=== PATIENT | female | born 1985 | race Asian ===

== ENCOUNTER 2016-07-02 20:51 | Emergency (ER) | payer OTHER, MEDICAID ==
[2016-07-02] MEDS ORDERED: PNV11TAB PO (20:58)
[2016-07-02] MEDS ORDERED: ASPI81TA42 PO (20:58)
[2016-07-02] MEDS ORDERED: GLYB2.5 PO (20:58)
== END 2016-07-03 04:42 | disposition home or self-care (01) ==
LOC: EMS 20:53
DX: O62.4 Hypertonic, incoordinate, and prolonged uterine contractions (principal); Z53.21 Procedure and treatment not carried out due to patient leaving prior to being seen by health care provider

== ENCOUNTER 2016-07-02 21:10 | Observation (INO) | payer OTHER, MEDICAID ==
[~2016-07-02] VITALS: Ht 165.1 cm; Wt 101.6 kg
[~2016-07-02 21:10] MED LIST: ASPI81TA42 PO; GLYB2.5 PO; PNV11TAB PO
[2016-07-02 21:53] VITALS: BP 118/59
[2016-07-02 22:46] LABS: GLUCOSE,POINT OF CARE 74 MG/DL (70-110)
[2016-07-02] MEDS ORDERED: CefTRIAXone SODIUM 1 GM/VIAL IM ONE (22:55)
[2016-07-02] MEDS ORDERED: LIDOCAINE HCL/PF 1% 2 ML VIAL IM ONE (23:00)
== END 2016-07-02 23:55 | disposition home or self-care (01) ==
LOC: 4S 21:10
PROVIDERS: ADMIT Obstetrics & Gynecology Gynecology; ATTEND Obstetrics & Gynecology Gynecology
DX: O26.892 Other specified pregnancy related conditions, second trimester (principal); R30.9 Painful micturition, unspecified; O24.419 Gestational diabetes mellitus in pregnancy, unspecified control; Z3A.21 21 weeks gestation of pregnancy
CPT/HCPCS: 59025; 82962; 96372; G0378; J0696; J3490

== ENCOUNTER 2018-09-05 20:58 | Emergency (ER) | payer MEDICAID, OTHER ==
[~2018-09-05] VITALS: Ht 165.1 cm; Wt 100.5 kg
[~2018-09-05 20:58] MED LIST changes: +ASPI81TA40 PO; -ASPI81TA42 PO
[2018-09-05] MEDS ORDERED: LISI-660 PO (21:05)
[2018-09-05] MEDS ORDERED: METF-960 PO (21:05)
[2018-09-05] MEDS ORDERED: EMPA10TA PO (21:05)
[2018-09-05 22:15] LABS: APPEARANCE,URINE CLOUDY (CLEAR); GLUCOSE, URINE (UA) 100 mg/dL (NEGATIVE); KETONES,URINE >=80 mg/dL (NEGATIVE); LEUKOCYTE ESTERASE ,URINE MODERATE (NEGATIVE); NITRATE,URINE NEGATIVE (NEGATIVE); OCCULT BLOOD,URINE SMALL (NEGATIVE); PH,URINE 5.5 (5.0-8.0); PROTEIN,URINE SEE CONFIRM (NEGATIVE)
[2018-09-05] MEDS ORDERED: KETOROLAC TROMETHAMINE 30 MG/ML VIAL IVP ONE (22:15)
[2018-09-05 22:16] LABS: BILIRUBIN,URINE PRELIM. POSITIVE (NEGATIVE)
[2018-09-05 22:16] LABS: BASOPHILS % (AUTO) 0.6 % (0.0-2.0); EOSINOPHILS % (AUTO) 0.5 % (1.0-6.0); HEMATOCRIT 40.9 % (36-46); HEMOGLOBIN 13.6 g/dL (12.0-16.0); LYMPHOCYTES # (AUTO) 2.6 K/uL (1.0-4.8); MEAN CORPUSCULAR HEMOGLOBIN 28.9 pg (26.0-34.0); MEAN CORPUSCULAR HGB CONC 33.2 G/dL (31.0-37.0); MEAN CORPUSCULAR VOLUME 87 fL (80-100); MONOCYTES # (AUTO) 0.4 K/uL (0.1-1.0); MONOCYTES % (AUTO) 4.6 % (2.0-9.0); NEUTROPHILS # (AUTO) 6.1 K/uL (1.8-7.7); NEUTROPHILS % (AUTO) 66.3 % (40.0-70.0); PLATELET COUNT (AUTO) 370 K/uL (150-450); RED BLOOD CELL COUNT(AUTO) 4.69 MIL/uL (4.00-5.20); RED CELL DISTRIBUTION WIDTH 13.6 % (11.5-14.5)
[2018-09-05 22:21] LABS: SULFOSALICYLIC ACID,URINE 3+ (Negative); WBC,URINE 26-50 /HPF (0-5)
[2018-09-05 22:22] LABS: BACTERIA,URINE Few /HPF (None Seen); MUCUS,URINE Moderate LPF (None Seen); SQUAMOUS EPITHELIAL CELL,UR Moderate /LPF (None Seen)
[2018-09-05 22:23] LABS: ANION GAP 8 mmol/L (8-16); CALCIUM, TOTAL 8.8 mg/dL (8.8-10.5); CARBON DIOXIDE 26 mmol/L (22-29); CHLORIDE 101 mmol/L (98-107); CREATININE 0.85 mg/dL (0.60-1.30); GLOMERULAR FILTR. RATE CALC > 60 mL/min (>60); GLUCOSE,RANDOM 187 mg/dL (70-110); POTASSIUM 3.1 mmol/L (3.5-5.1); SODIUM SERUM 135 mmol/L (136-145); UREA NITROGEN, BLOOD 7 mg/dL (7-18)
[2018-09-05 22:29] LABS: ALANINE AMINOTRANSFERASE 19 U/L (12-78); ALKALINE PHOSPHATASE 29 U/L (46-116); ASPARTATE AMINOTRANSFERASE 13 U/L (15-37); BILIRUBIN,TOTAL 0.4 mg/dL (0.1-1.0); TOTAL PROTEIN, SERUM 7.5 g/dL (6.4-8.2)
[2018-09-06] MEDS ORDERED: POTASSIUM CHLORIDE 20 MEQ ER TABLET PO ONE (00:15)
[2018-09-06] MEDS ORDERED: CEPHALEXIN MONOHYDRATE 500 MG CAPSULE PO ONE (00:15)
[2018-09-06 00:35] VITALS: BP 131/72
== END 2018-09-06 00:45 | disposition home or self-care (01) ==
LOC: EMS 20:58
DX: M94.0 Chondrocostal junction syndrome [Tietze] (principal); N39.0 Urinary tract infection, site not specified; I10 Essential (primary) hypertension; E11.9 Type 2 diabetes mellitus without complications; Z79.84 Long term (current) use of oral hypoglycemic drugs; Z79.899 Other long term (current) drug therapy
CPT/HCPCS: 36415; 71045; 80053; 81001; 81025; 82962; 84484; 85025; 87086; 93005; 96374; 99284; J1885

== ENCOUNTER 2022-09-17 20:50 | Emergency (ER) | payer OTHER ==
[~2022-09-17] VITALS: Ht 170.2 cm; Wt 95.5 kg
[~2022-09-17 20:50] MED LIST changes: -ASPI81TA40 PO; +EMPA10TA3 PO; -GLYB2.5 PO; +LISI-892 PO; +METF-1211 PO; -PNV11TAB PO
[2022-09-17 21:16] LABS: GLUCOMETER DEV NAME(LOC) ERT.5; GLUCOSE,POINT OF CARE 236 MG/DL (70-110)
[2022-09-17] MEDS ORDERED: ONDANSETRON HCL 4 MG/2 ML VIAL IVP ONE (21:45)
[2022-09-17] MEDS ORDERED: SODIUM CHLORIDE 0.9% 1,000 ML IV ONE (21:45)
[2022-09-17] MEDS ORDERED: KETOROLAC TROMETHAMINE 30 MG/ML VIAL IVP ONE (21:45)
[2022-09-17] MEDS ORDERED: FAMOTIDINE 10 MG/ML 2 ML VIAL IVP ONE (21:45)
[2022-09-17] MEDS ORDERED: MAG HYDROX/AL HYDROX/SIMETH 30 ML SUSP UDCUP PO ONE (21:45)
[2022-09-17 21:48] LABS: BASOPHILS % (AUTO) 0.2 % (0.0-2.0); EOSINOPHILS % (AUTO) 0.4 % (1.0-6.0); HEMATOCRIT 46.2 % (36-46); HEMOGLOBIN 15.1 g/dL (12.0-16.0); LYMPHOCYTES # (AUTO) 0.4 K/uL (1.0-4.8); LYMPHOCYTES % (AUTO) 2.6 % (22.0-44.0); MEAN CORPUSCULAR HGB CONC 32.7 G/dL (31.0-37.0); MEAN CORPUSCULAR VOLUME 89 fL (80-100); MONOCYTES # (AUTO) 0.7 K/uL (0.1-1.0); MONOCYTES % (AUTO) 4.3 % (2.0-9.0); NEUTROPHILS # (AUTO) 14.7 K/uL (1.8-7.7); PLATELET COUNT (AUTO) 337 K/uL (150-450); RED CELL DISTRIBUTION WIDTH 13.6 % (11.5-14.5)
[2022-09-17 21:49] LABS: NEUTROPHILS % (AUTO) 92.5 % (40.0-70.0)
[2022-09-17 22:00] LABS: ANION GAP 14 mmol/L (8-16); CALCIUM, TOTAL 9.1 mg/dL (8.8-10.5); CARBON DIOXIDE 25 mmol/L (22-29); CHLORIDE 103 mmol/L (98-107); CREATININE 1.02 mg/dL (0.60-1.30); GLOMERULAR FILTR. RATE CALC > 60 mL/min (>60); GLUCOSE,RANDOM 209 mg/dL (70-110); POTASSIUM 4.3 mmol/L (3.5-5.1); SODIUM SERUM 142 mmol/L (136-145)
[2022-09-17 22:12] LABS: ALANINE AMINOTRANSFERASE 23 U/L (12-78); ALBUMIN 4.3 g/dL (3.4-5.0); ALKALINE PHOSPHATASE 34 U/L (46-116); ASPARTATE AMINOTRANSFERASE 16 U/L (15-37); BILIRUBIN,TOTAL 0.4 mg/dL (0.1-1.0); HCG,QUANTITATIVE < 1 mIU/mL (0-6); LIPASE 54 U/L (73-393); TOTAL PROTEIN, SERUM 8.3 g/dL (6.4-8.2)
[2022-09-17] MEDS ORDERED: ONDA-104 PO (23:49)
[2022-09-17 23:50] VITALS: BP 100/69
== END 2022-09-18 | disposition home or self-care (01) ==
LOC: EMS 20:54
DX: K52.9 Noninfective gastroenteritis and colitis, unspecified (principal); R11.2 Nausea with vomiting, unspecified; E11.9 Type 2 diabetes mellitus without complications; I10 Essential (primary) hypertension; Z79.84 Long term (current) use of oral hypoglycemic drugs; Z79.899 Other long term (current) drug therapy
CPT/HCPCS: 99285; 96374; 76700; 96375; 96361; 80053; 82962; 83690; 84702; 85025; 36415; J3490; J1885; J2405

== ENCOUNTER 2022-11-22 18:58 | Emergency (ER) | payer OTHER ==
[~2022-11-22] VITALS: Ht 165.1 cm; Wt 81.8 kg
[~2022-11-22 18:58] MED LIST changes: +ONDA-104 PO
[2022-11-22 19:04] VITALS: BP 117/77; PULSE 90; RESP 16; TEMP 98
[2022-11-22] MEDS ORDERED: LORA10TA7 PO (19:59)
[2022-11-22] MEDS ORDERED: FLUT16H NASAL (19:59)
[2022-11-22] MEDS ORDERED: DAPA10TA PO (19:59)
[2022-11-22] MEDS ORDERED: ACETAMINOPHEN 500 MG TABLET PO ONE (20:00)
[2022-11-22] MEDS ORDERED: IBUPROFEN 600 MG TABLET PO ONE (20:00)
[2022-11-22] MEDS ORDERED: BACL10TA PO (20:57)
[2022-11-22] MEDS ORDERED: IBUP-1554 PO (20:57)
[2022-11-22] MEDS ORDERED: ACET-2080 PO (20:57)
== END 2022-11-22 21:15 | disposition home or self-care (01) ==
LOC: EMS 19:02
DX: S13.4XXA Sprain of ligaments of cervical spine, initial encounter (principal); S30.0XXA Contusion of lower back and pelvis, initial encounter; E11.9 Type 2 diabetes mellitus without complications; I10 Essential (primary) hypertension; Z98.890 Other specified postprocedural states; Z91.013 Allergy to seafood; V89.2XXA Person injured in unspecified motor-vehicle accident, traffic, initial encounter; Y93.89 Activity, other specified; Y92.481 Parking lot as the place of occurrence of the external cause; Y99.8 Other external cause status
CPT/HCPCS: 72040; 72070; 72100; 99284; Z7502; Z7610